=== PATIENT | female | born 1960 ===

== ENCOUNTER 2023-10-02 10:26 | Day surgery (SDC) | payer OTHER ==
[2023-09-19 09:40] LABS: HEMATOCRIT 40.8 % (36.0-45.00); HEMOGLOBIN 14.3 g/dL (12.0-15.00); MEAN CELL VOLUME 90.9 fL (80.00-100.00); MEAN CORPUSCULAR HEMOGLOBIN 31.8 pg (27.00-32.0); PLATELET COUNT 416 K/uL (150-450); RED BLOOD COUNT 4.49 M/uL (4.00-6.00); RED CELL DISTRIBUTION WIDTH 12.7 % (11.5-14.5)
[2023-09-19 09:41] LABS: URINE APPEARANCE Clear; URINE BILIRRUBIN Negative (NEGATIVE); URINE BLOOD Moderate; URINE COLOR Yellow; URINE GLUCOSE Negative (NEGATIVE); URINE LEUKOCYTE Moderate; URINE NITRATE Negative; URINE PROTEIN Negative (NEGATIVE)
[2023-09-19 09:42] LABS: URINE EPITHELIAL CELLS 37.2 uL (0.0-38.8); URINE RBC 37.3 uL (0.0-20.8); URINE WBC 74.8 uL (0.0-23.2)
[2023-09-19 09:58] LABS: INR 1.04; PARTIAL THROMBOPLASTIN TIME 28.4 SECONDS (22.0-34.0); PROTHROMBIN TIME 10.9 SECONDS (9.0-11.5)
[2023-09-19 12:41] LABS: ALBUMIN 3.9 gm/dL (3.4-5.0); CALCIUM 9.5 mg/dL (8.5-10.1); CREATININE SERUM 0.76 mg/dL (0.55-1.02); GFR 76.62; GLOBULINA 3.1 G/DL (2.4-3.5); POTASSIUM 4.28 mEq/L (3.5-5.1)
[~2023-10-02 10:26] MED LIST: MEGESTROL ACETA20 MG PO
[2023-10-02] MEDS ORDERED: POVIDONE-IODINE 118 ML BOTT TOP ONE ×2 (19:44→20:15)
== END 2023-10-03 04:10 | disposition home or self-care (01) ==
LOC: CIR.AMB 10:26
PROVIDERS: ATTEND Obstetrics & Gynecology
DX: N85.02 Endometrial intraepithelial neoplasia [EIN] (principal)